=== PATIENT | female | born 1955 | race Caucasian/White ===

== ENCOUNTER → 2017-12-11 12:04 | Outpatient (CLI) | payer BC, SELFPAY ==
[2017-12-18 12:40] LABS: HPV APTIMA, High Risk Negative (Negative)
[2017-12-18 12:41] LABS: HPV Reflexed? YES, CHARGE PATIENT
== END ==
PROVIDERS: Visit Provider Obstetrics & Gynecology
DX: Z12.4 Encounter for screening for malignant neoplasm of cervix (principal)
CPT/HCPCS: 87624; 88175; G0145

== ENCOUNTER → 2019-03-18 17:48 | Outpatient (CLI) | payer BC, SELFPAY ==
[2019-03-23 10:45] LABS: HPV Reflexed? NOT INDICATED
== END ==
PROVIDERS: Referring Provider Obstetrics & Gynecology; Visit Provider Obstetrics & Gynecology
DX: Z12.4 Encounter for screening for malignant neoplasm of cervix (principal)
CPT/HCPCS: 87624; 88175; G0145

== ENCOUNTER 2019-05-31 08:54 | Day surgery (SDC) | payer BC, SELFPAY ==
[2019-05-20 11:33] LABS: Hematocrit 39.7 % (37-47); Hemoglobin 12.7 g/dL (12.0-15.0); Mean Corpuscular Hgb 29.2 pg (27.0-32.0); Mean Corpuscular Volume 91.3 fL (81-99); Mean Platelet Vol. 10.1 fl (6.2-12.0); Platelet Count 308 K/mm3 (150-450); RBC Distribution Width SD 40.6 fl (35.1-43.9); Red Blood Count 4.35 M/mm3 (4.2-5.4); White Blood Count 4.6 K/mm3 (4.4-11.0)
[2019-05-20 11:39] LABS: International Normalized Ratio 1.1; Partial Thromboplast Time 27.8 Seconds (24.1-36.2)
[2019-05-20 12:04] LABS: ALB/GLOB Ratio 1.1 RATIO (0.9-2.4); AST(SGOT) 19 U/L (15-37); Alanine Aminotransfer ALT/SGPT 21 U/L (13-56); Albumin, Serum 3.8 g/dL (3.2-5.0); Alkaline Phosphatase 55 U/L (45-117); Anion Gap 6 (5-15); BUN 12 mg/dL (7-18); BUN/Creat Ratio 14.7 RATIO (10-20); Calcium,Total 9.1 mg/dL (8.5-10.1); Chloride 107 mmol/L (98-107); Creatinine, Serum 0.82 mg/dL (0.55-1.02); EST Glomerular Filtration Rate 75 mL/min (>60); Est Glom Filt Rate - Afr Amer 91 mL/min (>60); Globulin 3.5 g/dL (2.2-4.2); Glucose 84 mg/dL (74-106); Potassium 4.6 mmol/L (3.5-5.1); Protein, Total 7.3 g/dL (6.4-8.2); Sodium Level 141 mmol/L (136-145)
--- NOTE | 2019-05-30 16:07 | HP.PCM_ITS ---
History and Physical Date of Admission: 05/31/19 Surgical History and Physical Karen Bush, a 63 year old female 2 0 1 0 2, presents for Vaginal Hysterectomy and AP Repair on May 31, 2019 at 10:30. -- Uterovaginal Pressure -- Worsening lower pelvic pressure the past two years. Pelvic pressure which began two years ago. Karen claims it started during normal activity and has been present two years. It occurs intermittently. It is located in the pelvis. Severity is worsening; It is aggravated by lifting. Associated signs and symptoms are occas bladder incontinence. Additional comments are: wears light day pad daily.; Additional comments are: being on feet all day then something seems to come out of vagina. MEDICATIONS HISTORY: Current medications prescribed by our practice are: 1. fluoxetine 20 mg tablet, One pill by mouth once a day 2. Prempro 0.625 mg-2.5 mg tablet, One pill by mouth once a day Patient is also takin. Zocor 10 mg Tablet, One pill by mouth once a day 2. Coreg CR 20 mg capsule, extended release, One pill by mouth once a day 3. levothyroxine 125 mcg tablet, One pill by mouth once a day 4. meloxicam 15 mg tablet, One pill by mouth once a day ALLERGIES: NKA Infections - NONE Illnesses - Shingles and arthritis Accidents - no injuries of consequence Hospitalizations - Childbirth and see surgery Review of Systems: GENERAL - Denies fever, or chills SKIN - Denies skin changes EYES - Denies visual changes EARS - Denies difficulty hearing NOSE - Denies nasal congestion or bleeding MOUTH - Denies sore throat or difficulty swallowing NECK - Denies pain or swelling RESPIRATORY - Denies shortness of breath or wheezing CARDIOVASCULAR - Denies palpitations or chest pain GASTROINTESTINAL - Denies nausea, vomiting, diarrhea, constipation GENITOURINARY - Denies dysuria, frequency of urination, incontinence of urine MUSCULOSKELETAL - Denies joint or muscle pain NEUROLOGICAL - Denies localized numbness or weakness PSYCHIATRIC - Denies depression or anxiety ENDOCRINE - Denies heat or cold intolerance, weight loss or gain HEMATO-IMMUNOLOGIC - Denies excesive bleeding with cuts SOCIAL HISTORY: Alcohol Use - drinks occasionally Smoking - used to smoke but quit Diet - balanced Diet Lifestyle - moderate stress lifestyle and Exercise - active Seat Belt Use - always 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 Father: Heart Disease. MENSTRUAL HISTORY: LMP Known?- Postmenopausal, LMP - 04/20/07 PAST PREGNANCIES: Total Pregnancies - 3; Full Term Pregnancies - 2; Premature - 0; Abortions, Induced - 0; Abortions, Spontaneous - 1; Ectopics - 0; Multiple Births - 0; Living Children - 2 SURGICAL HISTORY: 1. T and A, 1959 2. wisdom teeth extraction 3. D and C and GALLBLADDER 4. rotator cuff repair, X2 PHYSICAL EXAM BP- 144/88 Sitting, Right arm, regular cuff Weight- 134.81065 lbs Height- 63 inch BMI:23.79 CONSTITUTIONAL - NAD, well nourished, and well developed SKIN - No rash, lesions, or ulcers HEENT - Normocephalic, PERRLA, EOMI NECK - No nodes, no nuchal rigidity and thyroid normal size and texture LYMPH NODES - Palpation of lymph nodes in neck and groins within normal limits LUNGS - CTA x2 without wheezes, crackles or rales CARDIAC - Regular rate and rhythm without rubs, murmurs, or gallops BREAST - No dominant masses, no tenderness, no axillary adenopathy, no nipple discharge, no skin changes ABDOMEN - Without hepatosplenomegaly, distention, masses, rebound, or guarding; normal bowel sounds; no hernias EXTREMITIES - No edema or calf tenderness NEUROLOGICAL - Cranial nerves II-XII grossly intact PSYCHIATRIC - A and O to time, place, person, mood and affect External Genital Vagina - non-tender without lesions Urethra/Urethral Meatus - non-tender Bladder - non-tender Vagina - mild rectocele, moderate cystocele, loss of rugae and cystocele perhaps slightly larger than earlier this year Cervix - without cervical motion tenderness and has normal size and features without evident lesions and protrudes to within 2 cm of introitus with bearing down Uterus - 5-6 cm in size, mobile and nontender Adnexa - clear without masses or tenderness ASSESSMENT/PLAN Cystocele Midline, Rectocele, Uterovaginal Prolapse and Incomplete Very symptomatic and she does not like the pessary which is uncomfortable. Wants to proceed with repair. Plan Vaginal Hysterectomy and AP Repair. Discussed RBAs and all questions answered.
[2019-05-31] VITALS (11 sets, daily range): BP systolic 111–159; BP diastolic 55–83; PULSE 70–96; RESP 16–18; TEMP 36.2–37; O2SAT 95–99; BMI 23.2
--- NOTE | 2019-05-31 09:11 | EKG12_ITS ---
Test Reason : PRE-OP Blood Pressure : / mmHG Vent. Rate : 069 BPM Atrial Rate : 069 BPM P-R Int : 148 ms QRS Dur : 080 ms QT Int : 402 ms P-R-T Axes : 020 045 049 degrees QTc Int : 430 ms Normal sinus rhythm Normal ECG Confirmed by NIKOLAI RHODES ([id number]), editor publications EMILY GIRARD ([id number]) on 06/04/2019 10:26:22 AM Referred By: Byron Oliva Confirmed By:NIKOLAI RHODES
[2019-05-31] MEDS: Lactated Ringers 1,000 ML 100 ML IV ×2 (09:35→13:26)
--- NOTE | 2019-05-31 10:30 | UT_PTH ---
PATIENT: MARIA T RAMOS LOC: [facility] [place] U#:[id number] AGE/SX: 63/F ROOM: RE05/31/[address]: Dr. Byron Oliva MD : [id number] BED: DIS: 06/01/2019 SPEC #: [id number] RECD: 05/31/19 16:17 STATUS: NUSRAT REErnie #: [id number] KAMILLE: 05/31/19 10:[address]: Byron Oliva DEPT: SURGICAL PATHOLOGY RECD BY: Francis Maldonado ENTERED: 06/01/19 09:52 SP TYPE: UTERUS OTHR DR: Out of Town Doctor Tissues: Uterus, NOS Procedures: Surgery Specimen Level V HEADER OPERATION: Total vaginal hysterectomy, A & P repair PRE-OP DIAGNOSIS: Cystocele midline, rectocele, uterovaginal prolapse TISSUE SUBMITTED: Uterus MICROSCOPIC DIAGNOSIS Uterus, vaginal hysterectomy and A & P repair: Cervix - mild chronic cystic cervicitis and squamous metaplasia. Endometrium - atrophic endometrium with cystic changes. Myometrium - focal minimal superficial adenomyosis. Vaginal mucosal tissue - pieces of squamous mucosa with reactive changes. VALE:shirlene 06/02/19 MICROSCOPIC DESCRIPTION Slides are reviewed. GROSS DESCRIPTION Received in fixative is one container labeled with the patient's name and designated uterus. The specimen consists of a hysterectomy specimen consisting of uterus with cervix and detached pieces of mucosal tissue. The uterus with cervix weighs 50 gm and measures 7 x 4 x 3 cm. The serosal surface is hinkle, glistening. The ectocervical mucosa is unremarkable. The external os is circular in contour. The endocervical canal measures 2.5 cm in length and the endocervical mucosa is hinkle, glistening and unremarkable. Sections of cervix reveal a few cysts filled with mucoid material. The endometrial cavity measures 3.5 cm in length and 1.5 cm in width. The endometrium is hinkle, glistening without any mass lesion and measures 0.1 cm in thickness. Sections of the uterine wall do not reveal any mass lesion and measures up to 1.5 cm in thickness. Also present in the container are five variable sized pieces of hinkle mucosal tissue measuring in aggregate 6 x 4 x 0.5 cm. No mucosal lesion is identified. Instrumentation crisostomo are noted. Apartment Rental Clerk sections are submitted in seven cassettes as follows: 1 - anterior cervix, 2 - posterior cervix, 3 & 4 - anterior uterine wall, 5 & 6 - posterior uterine wall, 7 - mucosal tissue. / VALE:shirlene 06/01/19 TC:5 CPT: 25656
--- NOTE | 2019-05-31 11:05 | PCM.OPRPT ---
Report of Operation Date of Procedure: 05/31/19 Pre-Operative Diagnosis: Incomplete Uterovaginal Prolapse Post-Operative Diagnosis: Incomplete Uterovaginal Prolapse Surgery/Procedure Performed:: Vaginal Hysterectomy and Anterior Posterior Repair Description of Surgical Findings:: 6 cm uterus with normal-appearing fallopian tubes and ovaries. Moderate cystocele and rectocele. utility worker driver: Emiliano Abreu Type of Anesthesia:: General - Endotracheal Anesthesiologist: Jeri Glover Specimen's removed: Uterus and vaginal mucosa Drains: Resendiz to straight drain Estimated Blood Loss (mL): 100 cc Fluids Replaced: Crystalloid Description of Procedure: Surgeon: Byron Oliva MD, FACOG Indications: This is a 63-year-old who is been having problems with pressure and uterovaginal prolapse. Conservative measures including a pessary have not been helpful. Given this the patient desires that we proceed the above procedure. She has been counseled regarding the risk and indications of this procedure including the possibility of bleeding, infection, and injury to surrounding structures such as bowel bladder. All questions were answered. Procedure: Patient was taken to the operating room where after induction of general anesthesia she was placed in the dorsal lithotomy position and prepped and draped in the usual sterile fashion. A Resendiz catheter was placed. Anterior cervix was grasped with a tenaculum and anterior cervix circumscribed with cautery on a setting of 35 W coagulation. Anterior vaginal mucosa was undermined and anterior peritoneum was easily entered. The posterior aspect of the cervix was circumscribed with a knife and posterior peritoneum easily entered. Progressive bites were taken on either side of the uterine cervix and each pedicle ligated with 0 Vicryl suture. Superior pedicles were ligated ?2 with 0 Vicryl suture and sidewall pedicles were examined and oversewn where necessary with [id number] 0 Vicryl suture to achieve hemostasis. Posterior vaginal cuff was oversewn with running locked 0 Vicryl suture. Hemostasis was noted and peritoneum was closed in a pursestring fashion incorporating superior pedicles into the stitch. Vaginal cuff was then closed front to back with interrupted [id number] 0 Vicryl suture. Hemostasis was noted. Attention was turned toward the anterior repair portion of the procedure. Anterior vaginal mucosa was undermined and divided and then imbricated toward the midline with interrupted 0 Vicryl sutures. Vaginal mucosa was trimmed and then closed with interrupted 2-0 chromic suture. Vaginal cuff was then closed front to back with interrupted [id number] 0 Vicryl suture. Hemostasis was noted. Attention was turned toward the posterior repair portion of the procedure. Remnants of the hymenal ring were grasped with Allises and a V-shaped incision was made in the perineum. Rectovaginal mucosa was then undermined divided and then imbricated toward the midline with interrupted 0 Vicryl suture. Vaginal mucosa was trimmed and then closed with running locked 2-0 chromic suture. Perineum was closed in the usual fashion with running and subcuticular, and [id number] 2-0 chromic suture. Hemostasis was noted. Resendiz catheter was again opened and clear yellow urine was noted. Vagina was packed with one iodoform tape. Patient tolerated the procedure well was taken to recovery room in satisfactory condition; sponge instrument and needle counts were all reportedly correct. Estimated blood loss for the case was 100 cc. Cefotan 2 g IV was given prior to beginning the operative procedure. There were no apparent complications of the surgery. Specimen to pathology was uterus and vaginal mucosa. Grafts/Implants Used: None - Complications None - Admit VTE Documentation VTE Present on Admission: Yes VTE Mechan Device Prophylaxis: SCD's VTE Pharm Prophylaxis ordered?: Yes
--- NOTE | 2019-05-31 11:08 | DCINST_ITS ---
Discharge Diet: No Restrictions Discharge Activity: Return to Normal Activity, May Not Drive - while taking narcotic pain medications., May Shower, May Take a Tub Bath May resume sexual activity in: 6-8 weeks Call your doctor if your incision/area has: Continuous Slow Oozing, Sudden Inc reased Bleeding, Increased Pain/ Swelling, Increased Redness, Foul Smelling Discharge Call your doctor if you observe: Fever of 101 or Higher, Inability to urinate, Inability to have a bowel movement, Using more than one pad per hour Allergies/Adverse Reactions: Allergies No Known Allergies Allergy (Verified 05/31/19 09:25) Medications to take at Discharge Carvedilol Phosphate CR [Coreg Cr] 20 mg PO DAILY 05/24/19 Fluoxetine [Prozac] 20 mg PO DAILY 05/24/19 Levothyroxine Sodium [Synthroid] 125 mcg PO DAILY 05/24/19 Meloxicam [Mobic] 15 mg PO DAILY 05/24/19 Multivitamin [Multiple Vitamins] 1 ea PO DAILY 05/24/19 Simvastatin [Zocor] 20 mg PO QHS 05/24/19 Docusate Sodium [Colace] 100 mg PO BID PRN PRN #60 cap 05/31/19 Estradiol 1 mg PO DAILY #100 tab 05/31/19 Oxycodone [Oxyir] 5 mg PO Q6H PRN PRN 7 Days #20 tab 05/31/19 The following prescriptions were given: Docusate Sodium [Colace] 100 mg PO BID PRN PRN #60 cap PRN Reason: Constipation Prescription Printed Estradiol 1 mg PO DAILY #100 tab Prescription Printed Oxycodone [Oxyir] 5 mg PO Q6H PRN PRN 7 Days #20 tab PRN Reason: Pain Score 6-10/10 Prescription Printed Orders to be completed after discharge: Thyroid Stim Hormone (TSH) Time Frame: 05/24/19, Facility: [facility], Location: Laboratory Primary Care Physician: ELAINE ESPINOSA [Other] Test Results: Test results from this visit will be discussed in further detail at your follow- up appointment, if applicable. Please Follow Up With: Byron Oliva MD When: 6 weeks
[2019-05-31] MEDS: Dextrose 5%-Lactated Ringers 1,000 ML 150 ML IV ×2 (14:50→21:49)
[2019-05-31] MEDS: HYDROmorphone 0.5 MG/0.5 ML SYRINGE IV (15:01)
[2019-05-31] MEDS: Ketorolac 15 MG/ML Vial IV ×2 (18:11→23:40)
[2019-05-31] MEDS: Enoxaparin 30 MG/0.3 ML Syringe SC (18:11)
[2019-05-31] MEDS: 0.9% NaCl Peripheral Flush Adult/Peds IV (23:40)
[2019-06-01 05:46] VITALS: BP 154/65; PULSE 95; RESP 16; TEMP 36.8; O2SAT 97
[2019-06-01] MEDS: Levothyroxine 125 MCG Tablet PO (05:52)
[2019-06-01] MEDS: Ketorolac 10 MG Tablet PO (05:52)
[2019-06-01 06:19] LABS: Hematocrit 34.2 % (37-47); Hemoglobin 11.1 g/dL (12.0-15.0); Mean Corp Hgb Conc 32.5 g/dL (32-36); Mean Corpuscular Hgb 29.4 pg (27.0-32.0); Mean Corpuscular Volume 90.5 fL (81-99); Mean Platelet Vol. 10.1 fl (6.2-12.0); Platelet Count 318 K/mm3 (150-450); RBC Distribution Width CV 12.1 % (11.6-14.6); RBC Distribution Width SD 40.4 fl (35.1-43.9); Red Blood Count 3.78 M/mm3 (4.2-5.4); White Blood Count 13.5 K/mm3 (4.4-11.0)
[2019-06-01 06:43] LABS: Creatinine, Serum 0.85 mg/dL (0.55-1.02); EST Glomerular Filtration Rate 71 mL/min (>60); Est Glom Filt Rate - Afr Amer 86 mL/min (>60); Estimated Creatinine Clearance 54.58 ml/min
[2019-06-01 07:20] VITALS: O2SAT 98
[2019-06-01 08:02] VITALS: BP 149/67; PULSE 93; RESP 18; TEMP 36.3; O2SAT 98
[2019-06-01] MEDS: Carvedilol 6.25 MG Tablet PO (08:15)
[2019-06-01] MEDS: FLUoxetine 20 MG Capsule PO (08:16)
--- NOTE | 2019-06-01 08:45 | PCM.PN.OB ---
Subjective: Patient without complaints. Tolerating diet well. Minimal vaginal bleeding or pain. - Physical Exam Vital Signs Temp Pulse Resp BP Pulse Ox 97.3 F L 93 18 149/67 H 98 06/01/19 08:02 06/01/19 08:02 06/01/19 08:02 06/01/19 08:02 06/01/19 08:02 Oxygen Delivery Method Room Air Weight: 133 lb 2.547 oz Body Mass Index (BMI) 23.2 Intake and Output for Last 24 Hours 05/30/19 05/31/19 06/01/19 23:59 23:59 23:59 Intake Total 3651 / 3651 530 / 530 Output Total 1585 / 1585 675 / 675 Balance 2066 / 2066 -145 / -145 Laboratory Tests Past 24 Hrs 06/01/19 06/01/19 05:50 05:50 WBC 13.5 H RBC 3.78 L Hgb 11.1 L Hct 34.2 L MCV 90.5 MCH 29.4 MCHC 32.5 RDW Std Deviation 40.4 RDW Coeff of [place] 12.1 Plt Count 318 MPV 10.1 Creatinine 0.85 Estim Creat Clear Calc 54.58 Est GFR (MDRD) Af Amer 86 Est GFR (MDRD) Non-Af 71 Hemoglobin and creatinine okay. Good urine output. Vaginal pack removed with minimal blood noted. Medical Necessity - Tobacco Use Smoking Status: Former smoker Tobacco Use: Non-smoker Assessment/Plan Doing well postoperative day #1 status post vaginal hysterectomy and anterior posterior repair. Will release to home when able to void on own.
[2019-06-01 11:22] VITALS: BP 149/67; PULSE 93; RESP 18; TEMP 36.3; O2SAT 98
== END 2019-06-01 11:20 | disposition home or self-care (01) ==
LOC: SDC 09:00 → AC 09:02 → MS3 06-01 11:24
PROVIDERS: Referring Provider Obstetrics & Gynecology; Visit Provider Obstetrics & Gynecology
PROC: (CPT 58260; principal; 2019-05-31 10:15)
DX: N81.2 Incomplete uterovaginal prolapse (principal); N72 Inflammatory disease of cervix uteri; N87.0 Mild cervical dysplasia; N80.0 Endometriosis of uterus; I10 Essential (primary) hypertension; E78.00 Pure hypercholesterolemia, unspecified; F32.9 Major depressive disorder, single episode, unspecified; E06.9 Thyroiditis, unspecified; M19.90 Unspecified osteoarthritis, unspecified site; Z79.899 Other long term (current) drug therapy; Z87.891 Personal history of nicotine dependence; Z23 Encounter for immunization
CPT/HCPCS: 00942; 57260; 58260; 90471; 36415; 80053; 82565; 84443; 85027; 85610; 85730; 86850; 86900; 86901; 88307; 93005; J7120; 90686; A4216; J2405